=== PATIENT | male | born 2000 | race African-American/Black ===

== ENCOUNTER 2024-06-18 14:57 | Emergency (ER) | payer MEDICAID, OTHER ==
[~2024-06-18] VITALS: Ht 175.3 cm; Wt 70.0 kg
[~2024-06-18 14:57] MED LIST: ADDERAL; CLARITIN; FLOUXETINE; RISPERDAL
[2024-06-18 15:03] VITALS: O2SAT 99
[2024-06-18 16:32] LABS: BASOPHILS % 0.3 % (0.0-2.0); EOSINOPHILS % 0.6 % (0.0-5.0); HEMATOCRIT. 46.1 % (42.0-52.0); HEMOGLOBIN. 15.3 g/dL (14.0-18.0); LYMPHOCYTES % 12.3 % (20.0-50.0); MEAN CORPUSCULAR HEMOGLOBIN 27.3 pg (28.0-32.0); MEAN CORPUSCULAR HGB CONC 33.1 g/dL (31.0-37.0); MEAN CORPUSCULAR VOLUME 82.4 fL (80.0-94.0); MEAN PLATELET VOLUME 7.7 fl (7.4-10.4); MONOCYTES % 5.8 % (2.0-8.0); PLATELET 258 x1000/uL (130-400); RED BLOOD CELL COUNT 5.59 mill/uL (4.7-6.1); RED CELL DISTRIBUTION WIDTH 13.1 % (11.6-14.6); WHITE BLOOD COUNT 13.3 x1000/uL (4.5-11.0)
[2024-06-18 16:33] LABS: CHLORIDE 107 mEq/L (98-107); POTASSIUM 3.3 mEq/L (3.5-5.1); SODIUM 144 mEq/L (136-145)
[2024-06-18 16:34] LABS: CALCIUM 10.3 mg/dL (8.7-10.4); CARBON DIOXIDE 30 mEq/L (21-32)
[2024-06-18 16:39] LABS: CREATININE 0.7 mg/dL (0.6-1.3); GLUCOSE 76 mg/dL (70-105); UREA NITROGEN BLOOD 11 mg/dL (9-23)
[2024-06-18 16:41] LABS: ACETAMINOPHEN < 2 ug/mL (10-30)
[2024-06-18 16:47] LABS: ETHANOL BLOOD < 10 mg/dL (<10)
[2024-06-18] MEDS: LORAZEPAM 2MG/ML INJ IM ONE (16:54)
[2024-06-18] MEDS: DIPHENHYDRAMINE 50MG/ML VIAL IM ONE (16:54)
[2024-06-18] MEDS: HALOPERIDOL LACTATE 5MG/ML VIAL IM ONE (16:54)
[2024-06-19 14:46] VITALS: BP 118/72; PULSE 84; RESP 18; TEMP 36.66960; O2SAT 100
== END 2024-06-19 14:58 | disposition home or self-care (01) ==
LOC: ER 14:57
DX: R45.851 Suicidal ideations (principal); E11.9 Type 2 diabetes mellitus without complications
CPT/HCPCS: 80048; 80307; 80329; 80320; 82962; 85025; 36415; 96372; 99291; J1200; J1630; Z7610 ×2; G0480

== ENCOUNTER 2024-06-29 12:31 | Emergency (ER) | payer MEDICAID ==
[~2024-06-29] VITALS: Ht 172.7 cm; Wt 79.0 kg
[2024-06-29 12:37] VITALS: O2SAT 99
[2024-06-29 13:16] LABS: CLARITY URINE CLEAR (CLEAR); COLOR URINE YELLOW (YELLOW); GLUCOSE URINE 3+ (NEGATIVE); KETONES URINE 2+ (NEGATIVE); LEUKOCYTE ESTERASE URINE NEGATIVE (NEGATIVE); NITRITE URINE NEGATIVE (NEGATIVE); OCCULT BLOOD URINE NEGATIVE (NEGATIVE); PH URINE 5.5 (4.5-8.0); PROTEIN URINE 1+ (NEGATIVE); SPECIFIC GRAVITY URINE 1.035 (1.005-1.030); UROBILINOGEN URINE 0.2 E.U./dL (0.2-1.0)
[2024-06-29 13:35] LABS: SQUAMOUS EPITHELIAL CELL URINE RARE /lpf (RARE/1+)
[2024-06-29 13:37] LABS: BACTERIA URINE NONE SEEN; RBC URINE NONE SEEN /hpf (0-2); WBC URINE NONE SEEN /hpf (0-2)
[2024-06-29 13:46] LABS: BASOPHILS % 0.3 % (0.0-2.0); EOSINOPHILS % 0.3 % (0.0-5.0); HEMOGLOBIN. 15.1 g/dL (14.0-18.0); LYMPHOCYTES % 11.6 % (20.0-50.0); MEAN CORPUSCULAR HEMOGLOBIN 27.1 pg (28.0-32.0); MEAN CORPUSCULAR HGB CONC 32.9 g/dL (31.0-37.0); MEAN CORPUSCULAR VOLUME 82.4 fL (80.0-94.0); MEAN PLATELET VOLUME 7.4 fl (7.4-10.4); MONOCYTES % 5.1 % (2.0-8.0); NEUTROPHILS % 82.7 % (40.0-76.0); PLATELET 267 x1000/uL (130-400); RED BLOOD CELL COUNT 5.59 mill/uL (4.7-6.1); WHITE BLOOD COUNT 12.9 x1000/uL (4.5-11.0)
[2024-06-29 13:59] LABS: CHLORIDE 97 mEq/L (98-107); POTASSIUM 4.5 mEq/L (3.5-5.1); SODIUM 132 mEq/L (136-145)
[2024-06-29 14:00] LABS: CARBON DIOXIDE 25 mEq/L (21-32)
[2024-06-29 14:01] LABS: CALCIUM 9.6 mg/dL (8.7-10.4)
[2024-06-29 14:06] LABS: UREA NITROGEN BLOOD 12 mg/dL (9-23)
[2024-06-29 14:08] LABS: ACETAMINOPHEN < 2 ug/mL (10-30)
[2024-06-29 14:09] LABS: ETHANOL BLOOD < 10 mg/dL (<10); GLUCOSE 391 mg/dL (70-105)
[2024-06-29 14:14] LABS: *AMPHETAMINES SCREEN URINE NEGATIVE (NEGATIVE); *BARBITURATES SCREEN URINE NEGATIVE (NEGATIVE); *BENZODIAZEPINES SCREEN URINE NEGATIVE (NEGATIVE); *COCAINE SCREEN URINE PRESUMPTIVE POSITIVE (NEGATIVE)
[2024-06-29 14:15] LABS: CANNABINOID URINE SCREEN PRESUMPTIVE POSITIVE (NEGATIVE); ECSTASY MDMA SCREEN URINE NEGATIVE (NEGATIVE); METHADONE URINE SCREEN NEGATIVE (NEGATIVE); OPIATES URINE SCREEN NEGATIVE (NEGATIVE); PHENCYCLIDINE URINE SCREEN NEGATIVE (NEGATIVE)
[2024-06-29] MEDS ORDERED: INSULIN REGULAR (HUMULIN R) 1000UNITS/10ML VIAL SUBCUT ONE (20:00)
[2024-06-29] MEDS ORDERED: DEXTROSE 50% WATER 50ML SYRINGE IV PRN (20:30)
[2024-06-29] MEDS: BLOOD SUGAR DIAGNOSTIC STRIP TEST SCH (21:00)
[2024-06-30] MEDS: INSULIN LISPRO 100 UNITS/ML SUBCUT PRN (09:50)
[2024-06-30 10:56] VITALS: BP 112/58; PULSE 92; RESP 18; TEMP 36.89184; O2SAT 99
== END 2024-06-30 11:50 | disposition home or self-care (01) ==
LOC: ER 12:31
DX: R45.851 Suicidal ideations (principal); E10.9 Type 1 diabetes mellitus without complications; F17.200 Nicotine dependence, unspecified, uncomplicated; F15.90 Other stimulant use, unspecified, uncomplicated; F12.90 Cannabis use, unspecified, uncomplicated; F41.9 Anxiety disorder, unspecified; Z79.4 Long term (current) use of insulin; Z91.51 Personal history of suicidal behavior
CPT/HCPCS: 80305; 80048; 81003; 80307; 80329; 80320; 82962; 85025; 36415; 73630; 99285; 96372; J1815; G0480

== ENCOUNTER 2025-03-14 11:58 | Inpatient (IN) | payer MEDICAID ==
[~2025-03-14] VITALS: Ht 177.8 cm; Wt 75.7 kg
[2025-03-14 12:01] VITALS: O2SAT 100
[2025-03-14] MEDS ORDERED: MIDAZOLAM HCL 2 MG/2 ML VIAL IM ONE (12:30)
[2025-03-14] MEDS: CEFTRIAXONE 1GM/50ML 50 ML IV ONE (12:45)
[2025-03-14] MEDS: SODIUM CHLORIDE 0.9% (SEPSIS BOLUS) IV ONE (12:45)
[2025-03-14] MEDS ORDERED: MIDAZOLAM HCL 5 MG/ML VIAL IM NR (12:45)
[2025-03-14 12:53] LABS: BASOPHILS % 0.8 % (0.0-2.0); EOSINOPHILS % 0.4 % (0.0-5.0); HEMATOCRIT. 45.0 % (42.0-52.0); HEMOGLOBIN. 15.1 g/dL (14.0-18.0); LYMPHOCYTES % 22.8 % (20.0-50.0); MEAN PLATELET VOLUME 8.2 fl (7.4-10.4); MONOCYTES % 7.2 % (2.0-8.0); NEUTROPHILS % 68.8 % (40.0-76.0); PLATELET 251 x1000/uL (130-400); RED BLOOD CELL COUNT 5.59 mill/uL (4.7-6.1); RED CELL DISTRIBUTION WIDTH 13.5 % (11.6-14.6)
[2025-03-14 12:57] LABS: BG BASE EXCESS 2.1 mmol/L (-2.0-3.0); BG CARBOXYHEMOGLOBIN 1.1 % (0.5-1.5); BG DEOXYHEMOGLOBIN 1.1 % (0.0-5.0); BG FRACTION INSPIRED OXYGEN 21; BG HCO3 ACT 22.3 mmol/L (21.0-28.0); BG METHEMOGLOBIN 0.1 % (0.5-1.5); BG OXYGEN SATURATION 98.9 % (94.0-98.0); BG OXYHEMOGLOBIN 97.7 % (94.0-98.0); BG PCO2 24.9 mmHg (35.0-48.0); BG PH 7.570 (7.350-7.450); BG PO2 121.2 mmHg (83.0-108.0); BG SAMPLE SITE RIGHT RADIAL; BG TOTAL HEMOGLOBIN 15.9 g/dL (13.5-17.5); BG VENT MODE ROOM AIR
[2025-03-14 13:08] LABS: INR 1.0
[2025-03-14 13:24] LABS: CREATININE 1.0 mg/dL (0.6-1.3)
[2025-03-14 13:25] LABS: ETHANOL BLOOD < 10 mg/dL (<10); TROPONIN I HIGH SENSITIVITY < 4 ng/L (3.0-53); UREA NITROGEN BLOOD 8 mg/dL (9-23)
[2025-03-14 13:26] LABS: ASPARTATE AMINOTRANSFERASE 19 IU/L (<34)
[2025-03-14 13:27] LABS: BILIRUBIN DIRECT 0.2 mg/dL (<=3.0); BILIRUBIN TOTAL 0.5 mg/dL (0.1-1.0); PROTEIN TOTAL 7.3 g/dL (6.0-8.3)
[2025-03-14] MEDS: INSULIN REGULAR (HUMULIN R) 1000UNITS/10ML VIAL SUBCUT SCH (14:24)
[2025-03-14] MEDS ORDERED: DEXTROSE 50% WATER 50ML SYRINGE IV PRN (16:30)
[2025-03-14] MEDS ORDERED: ACETAMINOPHEN 325MG TABLET PO PRN (16:30)
[2025-03-14] MEDS ORDERED: ONDANSETRON HCL 4MG/2ML INJ IV PRN (16:30)
[2025-03-14] MEDS ORDERED: MORPHINE SULFATE 2 MG/ML INJ (NOT FOR IM USE) IV PRN (16:30)
[2025-03-14] MEDS ORDERED: CLONIDINE 0.1MG TABLET PO PRN (16:30)
[2025-03-14] MEDS ORDERED: MAGNESIUM/ALUMINUM HYDROXIDE/SIMETHICONE 30ML UDC PO PRN (16:30)
[2025-03-14] MEDS: AZITHROMYCIN 500MG/250ML 250 ML IV SCH (17:08)
[2025-03-14] MEDS: SODIUM CHLORIDE 0.9% 1,000 ML IV SCH (17:08)
[2025-03-14] MEDS: BLOOD SUGAR DIAGNOSTIC STRIP TEST SCH (17:25)
[2025-03-14] MEDS: INSULIN LISPRO 100 UNITS/ML SUBCUT SCH (18:23)
[2025-03-14] MEDS: ENOXAPARIN 40MG/0.4ML SYR SUBCUT SCH (18:23)
[2025-03-14 21:42] LABS: CLARITY URINE CLEAR (CLEAR); COLOR URINE YELLOW (YELLOW); GLUCOSE URINE 3+ (NEGATIVE); KETONES URINE 1+ (NEGATIVE); LEUKOCYTE ESTERASE URINE NEGATIVE (NEGATIVE); NITRITE URINE NEGATIVE (NEGATIVE); OCCULT BLOOD URINE NEGATIVE (NEGATIVE); PH URINE 5.5 (4.5-8.0); PROTEIN URINE NEGATIVE (NEGATIVE); SPECIFIC GRAVITY URINE 1.033 (1.005-1.030); UROBILINOGEN URINE 0.2 E.U./dL (0.2-1.0)
[2025-03-14 21:57] LABS: BACTERIA URINE TRACE; RBC URINE NONE SEEN /hpf (0-2); SQUAMOUS EPITHELIAL CELL URINE RARE /lpf (RARE/1+)
[2025-03-14 21:58] LABS: *AMPHETAMINES SCREEN URINE NEGATIVE (NEGATIVE); WBC URINE 0-2 /hpf (0-2)
[2025-03-14 21:59] LABS: *BARBITURATES SCREEN URINE NEGATIVE (NEGATIVE); *BENZODIAZEPINES SCREEN URINE NEGATIVE (NEGATIVE); *COCAINE SCREEN URINE NEGATIVE (NEGATIVE); CANNABINOID URINE SCREEN PRESUMPTIVE POSITIVE (NEGATIVE); ECSTASY MDMA SCREEN URINE NEGATIVE (NEGATIVE); METHADONE URINE SCREEN NEGATIVE (NEGATIVE); OPIATES URINE SCREEN NEGATIVE (NEGATIVE); PHENCYCLIDINE URINE SCREEN NEGATIVE (NEGATIVE)
[2025-03-14 23:00] VITALS: BP 109/2; PULSE 74; RESP 18; TEMP 36.3624
[2025-03-15] VITALS: BP 101/65; PULSE 68; RESP 20; TEMP 37; O2SAT 96
[2025-03-15] MEDS: ZOLPIDEM TARTRATE 5MG TABLET PO PRN (00:08)
[2025-03-15] MEDS: HYDROCODONE/ACETAMINOPHEN 5/325MG TABLET PO PRN (00:09)
[2025-03-15 04:00] VITALS: BP 99/73; PULSE 69; RESP 20; TEMP 36.4; O2SAT 97
[2025-03-15 07:21] LABS: BASOPHILS % 0.4 % (0.0-2.0); EOSINOPHILS % 1.2 % (0.0-5.0); HEMATOCRIT. 39.6 % (42.0-52.0); HEMOGLOBIN. 13.0 g/dL (14.0-18.0); LYMPHOCYTES % 37.9 % (20.0-50.0); MEAN PLATELET VOLUME 8.2 fl (7.4-10.4); MONOCYTES % 8.3 % (2.0-8.0); NEUTROPHILS % 52.2 % (40.0-76.0); PLATELET 198 x1000/uL (130-400); RED BLOOD CELL COUNT 4.94 mill/uL (4.7-6.1); RED CELL DISTRIBUTION WIDTH 13.3 % (11.6-14.6)
[2025-03-15 07:35] LABS: CREATININE 0.7 mg/dL (0.6-1.3); UREA NITROGEN BLOOD 6 mg/dL (9-23)
[2025-03-15 08:00] VITALS: BP 103/71; PULSE 80; RESP 20; TEMP 36.2; O2SAT 98
[2025-03-15] MEDS: PANTOPRAZOLE SODIUM 40 MG/VIAL IV SCH (08:44)
[2025-03-15 12:00] VITALS: BP 105/76; PULSE 81; RESP 18; TEMP 36.4; O2SAT 98
[2025-03-15] MEDS ORDERED: CEFTRIAXONE 1GM/50ML 50 ML IV SCH (13:00)
[2025-03-15 16:00] VITALS: BP 97/61; PULSE 88; RESP 20; TEMP 36.2; O2SAT 99
[2025-03-15] MEDS: CEFTRIAXONE 1GM/50ML 50 ML IV SCH (16:28)
[2025-03-15] MEDS: AZITHROMYCIN 500MG/250ML 250 ML IV SCH (19:33)
[2025-03-15 20:00] VITALS: BP 106/66; PULSE 75; RESP 18; TEMP 36.6; O2SAT 95
[2025-03-16] VITALS: BP 111/72; PULSE 72; RESP 18; TEMP 36.2; O2SAT 99
[2025-03-16 03:57] VITALS: BP 114/67; PULSE 63; RESP 18; TEMP 36.4; O2SAT 99
[2025-03-16 07:46] LABS: BASOPHILS % 0.4 % (0.0-2.0); EOSINOPHILS % 1.5 % (0.0-5.0); HEMATOCRIT. 37.5 % (42.0-52.0); HEMOGLOBIN. 12.0 g/dL (14.0-18.0); LYMPHOCYTES % 40.0 % (20.0-50.0); MEAN PLATELET VOLUME 8.6 fl (7.4-10.4); MONOCYTES % 9.3 % (2.0-8.0); NEUTROPHILS % 48.8 % (40.0-76.0); PLATELET 178 x1000/uL (130-400); RED BLOOD CELL COUNT 4.61 mill/uL (4.7-6.1); RED CELL DISTRIBUTION WIDTH 13.4 % (11.6-14.6)
[2025-03-16 07:51] LABS: CREATININE 0.6 mg/dL (0.6-1.3); UREA NITROGEN BLOOD < 5 mg/dL (9-23)
[2025-03-16 08:00] VITALS: BP 112/72; PULSE 74; RESP 20; TEMP 36.3; O2SAT 98
[2025-03-16] MEDS ORDERED: NALOXONE HCL 0.4MG/ML VIAL IV PRN (08:15)
[2025-03-16] MEDS: POTASSIUM CHLORIDE 20MEQ/PACKET PO NR (08:19)
[2025-03-16 12:00] VITALS: BP 112/69; PULSE 81; RESP 16; TEMP 36.3; O2SAT 100
[2025-03-16] MEDS ORDERED: AMOX1TAB16 MT (12:21)
[2025-03-16] MEDS: CEFTRIAXONE 1GM/50ML 50 ML IV SCH (12:54)
[2025-03-16 16:00] VITALS: BP 117/76; PULSE 72; RESP 20; TEMP 36.4; O2SAT 99
[2025-03-16 16:16] LABS: BASOPHILS % 0.7 % (0.0-2.0); EOSINOPHILS % 1.1 % (0.0-5.0); HEMATOCRIT. 41.3 % (42.0-52.0); HEMOGLOBIN. 13.5 g/dL (14.0-18.0); LYMPHOCYTES % 30.0 % (20.0-50.0); MEAN PLATELET VOLUME 8.7 fl (7.4-10.4); MONOCYTES % 9.5 % (2.0-8.0); NEUTROPHILS % 58.7 % (40.0-76.0); PLATELET 202 x1000/uL (130-400); RED BLOOD CELL COUNT 5.08 mill/uL (4.7-6.1); RED CELL DISTRIBUTION WIDTH 13.4 % (11.6-14.6)
[2025-03-16 20:00] VITALS: BP 109/71; PULSE 71; RESP 18; TEMP 36.2; O2SAT 100
[2025-03-16] MEDS: SENNOSIDES 8.6MG TABLET PO SCH (21:44)
[2025-03-16] MEDS: FAMOTIDINE 20MG/2ML VIAL IV SCH (21:48)
[2025-03-16] MEDS: DOCUSATE SODIUM 100MG CAPSULE PO SCH (21:48)
[2025-03-17 04:00] VITALS: BP 123/66; PULSE 72; RESP 19; TEMP 36.4; O2SAT 97
[2025-03-17 06:46] LABS: BASOPHILS % 0.5 % (0.0-2.0); EOSINOPHILS % 1.2 % (0.0-5.0); HEMATOCRIT. 38.9 % (42.0-52.0); HEMOGLOBIN. 12.7 g/dL (14.0-18.0); LYMPHOCYTES % 36.5 % (20.0-50.0); MEAN PLATELET VOLUME 8.9 fl (7.4-10.4); MONOCYTES % 8.6 % (2.0-8.0); NEUTROPHILS % 53.2 % (40.0-76.0); PLATELET 173 x1000/uL (130-400); RED BLOOD CELL COUNT 4.79 mill/uL (4.7-6.1); RED CELL DISTRIBUTION WIDTH 13.4 % (11.6-14.6)
[2025-03-17 06:56] LABS: CREATININE 0.9 mg/dL (0.6-1.3); UREA NITROGEN BLOOD 7 mg/dL (9-23)
[2025-03-17 08:00] VITALS: BP 120/84; PULSE 80; RESP 18; TEMP 36.7; O2SAT 99
[2025-03-17] MEDS: AZITHROMYCIN 500 MG TABLET PO SCH (11:51)
[2025-03-17 12:00] VITALS: BP 122/74; PULSE 85; RESP 16; TEMP 36.4; O2SAT 98
[2025-03-17 16:00] VITALS: BP 115/70; PULSE 79; RESP 18; TEMP 36.3; O2SAT 97
[2025-03-17 20:00] VITALS: BP 109/70; PULSE 68; RESP 19; TEMP 36.2; O2SAT 98
[2025-03-18] VITALS: BP 103/65; PULSE 60; RESP 19; TEMP 35.9; O2SAT 98
[2025-03-18 04:00] VITALS: BP 125/84; PULSE 80; RESP 20; TEMP 36
[2025-03-18 08:00] VITALS: BP 119/74; PULSE 82; RESP 18; TEMP 36.7; O2SAT 97
[2025-03-18 12:00] VITALS: BP 121/75; PULSE 80; RESP 16; TEMP 36.4; O2SAT 98
[2025-03-18] MEDS ORDERED: IPRATROPIUM/ALBUTEROL 0.5-3(2.5)MG/3ML NEB HHN PRN (13:45)
[2025-03-18] MEDS ORDERED: SODIUM CHLORIDE 10% FOR INH 15ML NEB INH SCH (14:00)
[2025-03-18 16:00] VITALS: BP 119/70; PULSE 85; RESP 18; TEMP 36.8; O2SAT 97
[2025-03-18 20:00] VITALS: BP 100/53; PULSE 73; RESP 18; TEMP 36.6; O2SAT 100
[2025-03-18 23:01] LABS: HEPATITIS A AB IGM NEGATIVE (Negative)
[2025-03-18 23:02] LABS: HEPATITIS B CORE AB IGM NEGATIVE (Negative); HEPATITIS C AB NON REACTIVE (Neg) (Negative)
[2025-03-19] VITALS (7 sets, daily range): BP systolic 100–124; BP diastolic 50–70; PULSE 60–73; RESP 18–20; TEMP 36.2–36.7; O2SAT 96–100
[2025-03-20] VITALS: BP 114/56; PULSE 60; RESP 18; TEMP 36.6; O2SAT 97
[2025-03-20 04:00] VITALS: BP 114/62; PULSE 65; RESP 18; TEMP 36.6; O2SAT 99
[2025-03-20 08:00] VITALS: BP 120/78; PULSE 81; RESP 18; TEMP 36.3; O2SAT 99
[2025-03-20 12:00] VITALS: BP 122/71; PULSE 81; RESP 18; TEMP 36.6; O2SAT 100
[2025-03-20 16:00] VITALS: BP 103/56; PULSE 69; RESP 20; TEMP 36.7; O2SAT 99
[2025-03-20] MEDS: GLIPIZIDE 5MG TABLET PO SCH (16:18)
[2025-03-20 20:00] VITALS: BP 115/56; PULSE 69; RESP 19; TEMP 36.3; O2SAT 98
[2025-03-20] MEDS: INSULIN GLARGINE 100 UNITS/ML SUBCUT SCH (21:52)
[2025-03-21] VITALS: BP 108/50; PULSE 68; RESP 19; TEMP 36.3; O2SAT 98
[2025-03-21 04:00] VITALS: BP 108/65; PULSE 58; RESP 18; RESP 19; TEMP 36.4; O2SAT 98
[2025-03-21 08:00] VITALS: BP 112/61; PULSE 77; RESP 18; TEMP 36.4; O2SAT 100
[2025-03-21 12:00] VITALS: BP 110/70; PULSE 79; RESP 16; TEMP 36.5; O2SAT 99
[2025-03-21 16:00] VITALS: BP 119/79; PULSE 80; RESP 20; TEMP 36.7; O2SAT 100
[2025-03-21 20:00] VITALS: BP 113/66; PULSE 72; RESP 16; TEMP 36.4; O2SAT 98
[2025-03-22] VITALS: BP 115/53; PULSE 58; RESP 19; TEMP 36.2; O2SAT 97
[2025-03-22 04:00] VITALS: BP 103/59; PULSE 59; RESP 19; TEMP 36.6; O2SAT 97
[2025-03-22 08:00] VITALS: BP 107/59; PULSE 61; RESP 20; TEMP 36.7; O2SAT 98
[2025-03-22 12:00] VITALS: BP 110/60; PULSE 71; RESP 20; TEMP 36.7; O2SAT 99
[2025-03-22 16:00] VITALS: BP 105/59; PULSE 64; RESP 20; TEMP 36.9; O2SAT 99
[2025-03-22 17:11] LABS: *ASPERGILLUS FUMIGATUS IGG 5.5 mg/L (0.0-74.2)
[2025-03-22 20:00] VITALS: BP 118/64; PULSE 76; RESP 20; TEMP 37; O2SAT 98
[2025-03-23] VITALS (7 sets, daily range): BP systolic 96–113; BP diastolic 54–74; PULSE 61–90; RESP 17–20; TEMP 35.7–36.7; O2SAT 97–100
[2025-03-24] VITALS (7 sets, daily range): BP systolic 96–115; BP diastolic 49–69; PULSE 67–83; RESP 16–20; TEMP 36.2–37.2; O2SAT 98–100
[2025-03-24 04:09] LABS: QFT MITOGEN VALUE >10.00 IU/mL (.); QFT TB GOLD PLUS Negative (Negative); QFT TB1 AG VALUE 0.12 IU/mL (.); QFT TB2 AG VALUE 0.10 IU/mL (.)
[2025-03-25] VITALS: BP 106/49; PULSE 69; RESP 19; TEMP 36.4; O2SAT 98
[2025-03-25 04:00] VITALS: BP 116/59; PULSE 73; RESP 19; TEMP 36.5; O2SAT 98
[2025-03-25 08:00] VITALS: BP 104/71; PULSE 85; RESP 18; TEMP 36.7; O2SAT 97
[2025-03-25 12:00] VITALS: BP 115/68; PULSE 80; RESP 16; TEMP 36.7; O2SAT 99
[2025-03-25 16:00] VITALS: BP 105/64; PULSE 93; RESP 18; TEMP 36.5; O2SAT 100
[2025-03-25 20:00] VITALS: BP 119/67; PULSE 88; RESP 20; TEMP 36.3; O2SAT 100
[2025-03-26] VITALS: BP 110/60; PULSE 72; RESP 20; TEMP 36.3; O2SAT 100
[2025-03-26 04:00] VITALS: BP 101/53; PULSE 76; RESP 20; TEMP 35.7; O2SAT 100
[2025-03-26 07:33] LABS: BASOPHILS % 0.9 % (0.0-2.0); EOSINOPHILS % 1.6 % (0.0-5.0); HEMATOCRIT. 45.7 % (42.0-52.0); HEMOGLOBIN. 14.9 g/dL (14.0-18.0); LYMPHOCYTES % 34.1 % (20.0-50.0); MEAN PLATELET VOLUME 8.2 fl (7.4-10.4); MONOCYTES % 7.8 % (2.0-8.0); NEUTROPHILS % 55.6 % (40.0-76.0); PLATELET 215 x1000/uL (130-400); RED BLOOD CELL COUNT 5.64 mill/uL (4.7-6.1); RED CELL DISTRIBUTION WIDTH 13.1 % (11.6-14.6)
[2025-03-26 08:00] VITALS: BP 106/60; PULSE 87; RESP 18; TEMP 36.5; O2SAT 97
[2025-03-26 08:02] LABS: CREATININE 0.8 mg/dL (0.6-1.3); UREA NITROGEN BLOOD 9 mg/dL (9-23)
[2025-03-26 08:04] LABS: ASPARTATE AMINOTRANSFERASE 69 IU/L (<34); BILIRUBIN TOTAL 0.4 mg/dL (0.1-1.0); PROTEIN TOTAL 6.5 g/dL (6.0-8.3)
[2025-03-26 12:00] VITALS: BP 111/57; PULSE 78; RESP 16; TEMP 36.5; O2SAT 99
[2025-03-26 16:00] VITALS: BP 112/64; PULSE 71; RESP 18; TEMP 36.5; O2SAT 100
[2025-03-26 20:00] VITALS: BP 140/65; PULSE 85; RESP 18; TEMP 36.4; O2SAT 98
[2025-03-27] VITALS: BP 122/61; PULSE 81; RESP 18; TEMP 36.3; O2SAT 98
[2025-03-27 04:00] VITALS: BP 100/60; PULSE 69; RESP 18; TEMP 36.3; O2SAT 97
[2025-03-27 08:00] VITALS: BP 106/59; PULSE 72; RESP 18; TEMP 36.4; O2SAT 100
[2025-03-27 12:00] VITALS: BP 113/62; PULSE 81; RESP 18; TEMP 36.2; O2SAT 98
[2025-03-27 16:00] VITALS: BP 115/64; PULSE 65; RESP 18; TEMP 36.4; O2SAT 97
[2025-03-27 20:00] VITALS: BP_SYST 103; BP_SYST 104; BP_DIAS 56; BP_DIAS 57; PULSE 75; PULSE 81; RESP 18; RESP 20; TEMP 36.1; TEMP 36.3; O2SAT 100; O2SAT 97
[2025-03-27] MEDS: INSULIN GLARGINE 100 UNITS/ML SUBCUT SCH (22:52)
[2025-03-28] VITALS: BP 103/57; PULSE 75; RESP 18; TEMP 36.1; O2SAT 97
[2025-03-28 04:00] VITALS: BP 102/60; PULSE 82; RESP 16; TEMP 36.2; O2SAT 99
[2025-03-28 08:00] VITALS: BP 95/45; PULSE 67; RESP 19; TEMP 36.8; O2SAT 100
[2025-03-28 12:00] VITALS: BP 128/72; PULSE 91; RESP 18; TEMP 36.6; O2SAT 100
[2025-03-28 16:00] VITALS: BP 111/69; PULSE 82; RESP 18; TEMP 36.5; O2SAT 100
[2025-03-28 20:00] VITALS: BP 104/57; PULSE 84; RESP 16; TEMP 36.3; O2SAT 98
[2025-03-28] MEDS: FAMOTIDINE 20MG TABLET PO SCH (21:42)
[2025-03-29] VITALS: BP 106/62; PULSE 67; RESP 19; TEMP 36.1; O2SAT 97
[2025-03-29 04:00] VITALS: BP 104/59; PULSE 80; RESP 19; TEMP 36.3; O2SAT 96
[2025-03-29 08:00] VITALS: BP 104/58; PULSE 68; RESP 19; TEMP 36.6
[2025-03-29 12:00] VITALS: BP 101/59; PULSE 83; RESP 18; TEMP 36.7; O2SAT 100
[2025-03-29 16:00] VITALS: BP 114/57; PULSE 86; RESP 18; TEMP 36.4; O2SAT 100
[2025-03-29 20:00] VITALS: BP 111/62; PULSE 88; RESP 17; TEMP 36.4; O2SAT 98
[2025-03-30] VITALS: BP 105/59; PULSE 84; RESP 20; TEMP 36.8; O2SAT 99
[2025-03-30 04:00] VITALS: BP 99/53; PULSE 70; RESP 17; TEMP 37; O2SAT 100
[2025-03-30 08:00] VITALS: BP 109/65; PULSE 78; RESP 18; TEMP 36.1; O2SAT 100
[2025-03-30 12:00] VITALS: BP 112/62; PULSE 69; RESP 16; TEMP 36.4; O2SAT 100
[2025-03-30 16:00] VITALS: BP 102/56; PULSE 80; RESP 18; TEMP 37.1; O2SAT 100
[2025-03-30 20:00] VITALS: BP 101/51; PULSE 83; RESP 18; TEMP 36.3; O2SAT 100
[2025-03-31] VITALS: BP 95/53; PULSE 67; RESP 18; TEMP 36.4; O2SAT 100
[2025-03-31 04:00] VITALS: BP 106/56; PULSE 65; RESP 18; TEMP 36.4; O2SAT 97
[2025-03-31 08:00] VITALS: BP 94/53; PULSE 67; RESP 20; TEMP 36.2; O2SAT 100
[2025-03-31 12:00] VITALS: BP 105/62; PULSE 80; RESP 18; TEMP 36.1; O2SAT 99
[2025-03-31 16:00] VITALS: BP 110/72; PULSE 76; RESP 19; TEMP 36.3; O2SAT 100
[2025-03-31 20:00] VITALS: BP 103/80; PULSE 80; RESP 18; TEMP 36.7; O2SAT 97
[2025-04-01] VITALS: BP 106/75; PULSE 82; RESP 18; TEMP 36.6; O2SAT 100
[2025-04-01 04:00] VITALS: BP 111/70; PULSE 78; RESP 18; TEMP 36.4; O2SAT 98
[2025-04-01 08:00] VITALS: BP 110/68; PULSE 76; RESP 19; TEMP 36.6; O2SAT 98
[2025-04-01] MEDS: ARIPIPRAZOLE 5MG TABLET PO SCH (08:36)
[2025-04-01 12:00] VITALS: BP 108/70; PULSE 78; RESP 19; TEMP 36.6; O2SAT 98
[2025-04-01 16:00] VITALS: BP 111/66; PULSE 75; RESP 19; TEMP 36.7; O2SAT 98
[2025-04-01 20:00] VITALS: BP 103/56; PULSE 74; RESP 17; TEMP 36.3; O2SAT 100
[2025-04-02] VITALS: BP 105/61; PULSE 70; RESP 16; TEMP 36.2; O2SAT 100
[2025-04-02 04:00] VITALS: BP 110/59; PULSE 74; RESP 16; TEMP 36.2; O2SAT 100
[2025-04-02 08:00] VITALS: BP 113/58; PULSE 74; RESP 18; TEMP 36.2; O2SAT 99
[2025-04-02 12:00] VITALS: BP 112/56; PULSE 79; RESP 18; TEMP 36.6; O2SAT 100
[2025-04-02 16:00] VITALS: BP 125/70; PULSE 91; RESP 18; TEMP 36.1; O2SAT 98
[2025-04-02 20:00] VITALS: BP 110/66; PULSE 84; RESP 20; TEMP 36.4; O2SAT 98
[2025-04-03] VITALS: BP 105/54; PULSE 70; RESP 20; TEMP 36.6; O2SAT 99
[2025-04-03 04:00] VITALS: BP 109/60; PULSE 68; RESP 20; TEMP 36.4; O2SAT 98
[2025-04-03 08:00] VITALS: BP 112/63; PULSE 71; RESP 20; TEMP 36.2; O2SAT 97
[2025-04-03 12:00] VITALS: BP 101/53; PULSE 97; RESP 20; TEMP 35.9; O2SAT 98
[2025-04-03 16:00] VITALS: BP 102/62; PULSE 95; RESP 18; TEMP 35.9; O2SAT 100
[2025-04-03 20:00] VITALS: BP 111/55; PULSE 63; RESP 20; TEMP 36.3; O2SAT 96
[2025-04-04] VITALS: BP 108/58; PULSE 68; RESP 20; TEMP 36.2; O2SAT 97
[2025-04-04 04:00] VITALS: BP 102/61; PULSE 91; RESP 20; TEMP 36.3; O2SAT 98
[2025-04-04 08:00] VITALS: BP 100/60; PULSE 83; RESP 18; TEMP 36.1; O2SAT 97
[2025-04-04 12:00] VITALS: BP 107/61; PULSE 79; RESP 19; TEMP 36.2; O2SAT 97
[2025-04-04 16:00] VITALS: BP 105/61; PULSE 89; RESP 18; TEMP 36.3; O2SAT 98
[2025-04-04 20:00] VITALS: BP 145/97; PULSE 79; RESP 20; TEMP 36.3; O2SAT 97
[2025-04-05] VITALS: BP 140/94; PULSE 72; RESP 20; TEMP 36.2; O2SAT 98
[2025-04-05 04:00] VITALS: BP 103/60; PULSE 89; RESP 20; TEMP 36.3; O2SAT 100
[2025-04-05 08:00] VITALS: BP 108/70; PULSE 87; RESP 19; TEMP 36.1; O2SAT 96
[2025-04-05 12:00] VITALS: BP 110/72; PULSE 85; RESP 19; TEMP 36.1; O2SAT 95
[2025-04-05 16:00] VITALS: BP 115/67; PULSE 89; RESP 19; TEMP 36.1; O2SAT 98
[2025-04-05 20:00] VITALS: BP 105/60; PULSE 86; RESP 20; TEMP 36.2; O2SAT 100
[2025-04-06] VITALS: BP 102/56; PULSE 89; RESP 20; TEMP 36.2; O2SAT 99
[2025-04-06 04:00] VITALS: BP 96/53; PULSE 92; RESP 20; TEMP 36.3; O2SAT 100
[2025-04-06 08:00] VITALS: BP 103/59; PULSE 93; RESP 16; TEMP 36.6; O2SAT 100
[2025-04-06 12:00] VITALS: BP 101/55; PULSE 95; RESP 18; TEMP 36.7; O2SAT 100
[2025-04-06 16:00] VITALS: BP 100/52; PULSE 89; RESP 18; TEMP 36.7; O2SAT 99
[2025-04-06 20:00] VITALS: BP 106/57; PULSE 94; RESP 19; TEMP 36.3; O2SAT 100
[2025-04-07] VITALS: BP 95/56; PULSE 83; RESP 17; TEMP 36.4; O2SAT 97
[2025-04-07 08:00] VITALS: BP 103/60; PULSE 90; RESP 18; TEMP 36.5; O2SAT 100
[2025-04-07 12:00] VITALS: BP 104/61; PULSE 93; RESP 16; TEMP 36.8; O2SAT 99
[2025-04-07 16:00] VITALS: BP 100/54; PULSE 95; RESP 16; TEMP 36.1; O2SAT 99
[2025-04-07 20:00] VITALS: BP 101/60; PULSE 70; RESP 18; TEMP 36.3; O2SAT 100
[2025-04-08] VITALS: BP 97/56; PULSE 89; RESP 19; TEMP 36.4; O2SAT 100
[2025-04-08 08:00] VITALS: BP 107/62; PULSE 95; RESP 20; TEMP 36.2; O2SAT 98
[2025-04-08 12:00] VITALS: BP 112/67; PULSE 99; RESP 20; TEMP 36.1; O2SAT 97
[2025-04-08 16:00] VITALS: BP 111/56; PULSE 99; RESP 20; TEMP 36.3; O2SAT 99
[2025-04-08 20:00] VITALS: BP 105/59; PULSE 89; RESP 18; TEMP 36.4; O2SAT 100
[2025-04-09] VITALS: BP 104/59; PULSE 105; RESP 18; TEMP 36.1; O2SAT 100
[2025-04-09 08:00] VITALS: BP 107/59; PULSE 84; RESP 20; TEMP 35.3; O2SAT 100
[2025-04-09 12:00] VITALS: BP 110/52; PULSE 91; RESP 20; TEMP 36.1; O2SAT 99
[2025-04-09 16:00] VITALS: BP 113/33; PULSE 88; RESP 20; TEMP 36.3; O2SAT 98
[2025-04-09 20:00] VITALS: BP 111/59; PULSE 94; RESP 18; TEMP 36.1; O2SAT 99
[2025-04-09] MEDS: GUAIFENESIN-DM 200MG-20MG/10ML UDC PO PRN (21:14)
[2025-04-10] VITALS: BP 100/53; PULSE 88; RESP 18; TEMP 36.1; O2SAT 97
[2025-04-10 04:00] VITALS: BP 104/47; PULSE 82; RESP 18; TEMP 36.1; O2SAT 96
[2025-04-10 08:00] VITALS: BP 100/60; PULSE 84; RESP 16; TEMP 37.1; O2SAT 99
[2025-04-10 12:00] VITALS: BP 97/64; PULSE 91; RESP 17; TEMP 36.6; O2SAT 99
[2025-04-10 16:00] VITALS: BP 113/62; PULSE 82; RESP 18; TEMP 36.4; O2SAT 98
[2025-04-10 20:00] VITALS: BP 114/63; PULSE 87; RESP 20; TEMP 35.8; O2SAT 100
[2025-04-11] VITALS: BP 110/60; PULSE 86; RESP 20; TEMP 35.9; O2SAT 95
[2025-04-11 04:00] VITALS: BP 110/60; PULSE 84; RESP 20; TEMP 35.9; O2SAT 95
[2025-04-11 08:00] VITALS: BP 109/61; PULSE 89; RESP 20; TEMP 35.7; O2SAT 98
[2025-04-11] MEDS: INSULIN GLARGINE 100 UNITS/ML SUBCUT SCH (08:18)
[2025-04-11 12:00] VITALS: BP 109/67; PULSE 95; RESP 19; TEMP 35.7; O2SAT 98
[2025-04-11 16:00] VITALS: BP 130/78; PULSE 90; RESP 19; TEMP 36.1; O2SAT 100
[2025-04-11 20:00] VITALS: BP 104/58; PULSE 90; RESP 16; TEMP 36.2; O2SAT 99
[2025-04-11] MEDS ORDERED: DEXTROSE 50% WATER 50ML SYRINGE IV PRN (20:15)
[2025-04-11] MEDS: BLOOD SUGAR DIAGNOSTIC STRIP TEST SCH (21:29)
[2025-04-11] MEDS: INSULIN LISPRO 100 UNITS/ML SUBCUT SCH (21:39)
[2025-04-12] VITALS: BP 104/56; PULSE 87; RESP 19; TEMP 36.8; O2SAT 99
[2025-04-12 04:00] VITALS: BP 109/57; PULSE 91; RESP 16; TEMP 36.6; O2SAT 98
[2025-04-12 08:00] VITALS: BP 92/56; PULSE 87; RESP 18; TEMP 36.9; O2SAT 100
[2025-04-12 12:00] VITALS: BP 112/59; PULSE 84; RESP 18; TEMP 36.8; O2SAT 98
[2025-04-12 16:00] VITALS: BP 100/63; PULSE 98; RESP 18; TEMP 37.3; O2SAT 100
[2025-04-12] MEDS: PYRIDOXINE 100 MG/ML 1ML IM NR (18:47)
[2025-04-12 20:00] VITALS: BP 95/61; PULSE 88; RESP 17; TEMP 36.4; O2SAT 97
[2025-04-13] VITALS: BP 126/63; PULSE 106; RESP 20; TEMP 36.1; O2SAT 98
[2025-04-13 04:00] VITALS: BP 104/58; PULSE 95; RESP 16; TEMP 36.4; O2SAT 97
[2025-04-13 08:00] VITALS: BP 109/60; RESP 19; TEMP 36.1; O2SAT 98
[2025-04-13] MEDS: RIFAMPIN 300MG CAPSULE PO SCH (08:55)
[2025-04-13] MEDS: PYRAZINAMIDE 500MG TABLET PO SCH (08:56)
[2025-04-13] MEDS: ISONIAZID 300MG TABLET PO SCH (08:56)
[2025-04-13] MEDS: PYRIDOXINE HCL 50MG TABLET PO SCH (08:56)
[2025-04-13] MEDS: ETHAMBUTOL HCL 400MG TABLET PO SCH (08:56)
[2025-04-13 12:00] VITALS: BP 106/61; PULSE 97; RESP 18; TEMP 35.9; O2SAT 100
[2025-04-13 16:00] VITALS: BP 97/52; PULSE 89; RESP 18; TEMP 36.5; O2SAT 100
[2025-04-13 20:00] VITALS: BP 99/57; PULSE 86; RESP 16; TEMP 36.4; O2SAT 100
[2025-04-14] VITALS: BP 97/64; PULSE 89; RESP 18; TEMP 36.9; O2SAT 99
[2025-04-14 04:00] VITALS: BP 106/65; PULSE 88; RESP 18; TEMP 36.3; O2SAT 100
[2025-04-14 08:00] VITALS: PULSE 89; RESP 18; TEMP 36.7; O2SAT 100
[2025-04-14 12:00] VITALS: BP_SYST 100; BP_SYST 93; BP_DIAS 54; BP_DIAS 58; PULSE 75; PULSE 88; RESP 18; TEMP 36.3; TEMP 36.7; O2SAT 100; O2SAT 97
[2025-04-14 16:00] VITALS: BP 110/66; PULSE 95; RESP 18; TEMP 37.1; O2SAT 98
[2025-04-14 20:00] VITALS: BP 103/71; PULSE 97; RESP 19; TEMP 36.7; O2SAT 100
[2025-04-14] MEDS: INSULIN GLARGINE 100 UNITS/ML SUBCUT SCH (22:21)
[2025-04-15] VITALS: BP 102/63; PULSE 84; RESP 18; TEMP 36.6; O2SAT 98
[2025-04-15 04:00] VITALS: BP 110/72; PULSE 80; RESP 19; TEMP 36.6; O2SAT 98
[2025-04-15 08:00] VITALS: BP 102/60; PULSE 99; RESP 18; TEMP 36.2; O2SAT 99
[2025-04-15] MEDS: PYRAZINAMIDE 500MG TABLET PO SCH (09:58)
[2025-04-15 12:00] VITALS: BP 93/51; PULSE 91; RESP 18; TEMP 36.3; O2SAT 98
[2025-04-15 16:00] VITALS: BP 101/63; PULSE 83; RESP 18; TEMP 36.4; O2SAT 100
[2025-04-15 20:00] VITALS: BP 101/60; PULSE 91; RESP 16; TEMP 36.2; O2SAT 100
[2025-04-16] VITALS: BP 98/58; PULSE 70; RESP 17; TEMP 36.2; O2SAT 99
[2025-04-16 04:00] VITALS: BP 120/67; PULSE 91; RESP 17; TEMP 36.9; O2SAT 100
[2025-04-16 08:00] VITALS: BP 102/48; PULSE 91; RESP 18; TEMP 35.9; O2SAT 95
[2025-04-16 12:00] VITALS: BP 100/58; PULSE 85; RESP 18; TEMP 35.9; O2SAT 97
[2025-04-16 16:00] VITALS: BP 99/58; PULSE 88; RESP 19; TEMP 35.7; O2SAT 98
[2025-04-16 20:00] VITALS: BP 106/64; PULSE 82; RESP 19; TEMP 36.8; O2SAT 99
[2025-04-17] VITALS (7 sets, daily range): BP systolic 90–135; BP diastolic 57–64; PULSE 64–95; RESP 16–20; TEMP 36.4–37.3; O2SAT 97–100
[2025-04-18] VITALS: BP 97/55; PULSE 97; RESP 18; TEMP 36.5; O2SAT 99
[2025-04-18 04:00] VITALS: BP 90/45; PULSE 80; RESP 16; TEMP 36.4; O2SAT 99
[2025-04-18 08:00] VITALS: BP 92/58; PULSE 72; RESP 18; TEMP 36.3
[2025-04-18 12:00] VITALS: BP 94/47; PULSE 92; RESP 19; TEMP 36.7
[2025-04-18 16:00] VITALS: BP 95/52; PULSE 93; RESP 19; TEMP 36.6
[2025-04-18 20:00] VITALS: BP 95/56; PULSE 93; RESP 16; TEMP 37.3; O2SAT 99
[2025-04-19] VITALS: BP 98/63; PULSE 61; RESP 19; TEMP 36.5; O2SAT 99
[2025-04-19 04:00] VITALS: BP 99/55; PULSE 78; RESP 18; TEMP 36.7; O2SAT 98
[2025-04-19 08:00] VITALS: BP 97/60; PULSE 87; RESP 18; TEMP 36.1; O2SAT 99
[2025-04-19] MEDS ORDERED: LANTUSUD SUBCUT (10:30)
[2025-04-19] MEDS ORDERED: ABIL5 PO (10:30)
[2025-04-19] MEDS ORDERED: [UNRECOGNIZED DRUG - CODE] PO (10:30)
[2025-04-19] MEDS ORDERED: PYRI-8 PO (10:30)
[2025-04-19] MEDS ORDERED: [UNRECOGNIZED DRUG - CODE] PO (10:30)
[2025-04-19] MEDS ORDERED: RIFA300C66 PO (10:30)
[2025-04-19 12:00] VITALS: BP 108/59; PULSE 89; RESP 18; TEMP 36.2; O2SAT 100
[2025-04-19 16:00] VITALS: BP 94/56; PULSE 85; RESP 18; TEMP 36.4; O2SAT 100
[2025-04-19 18:24] LABS: PLATELET 216 x1000/uL (130-400); RED BLOOD CELL COUNT 5.42 mill/uL (4.7-6.1); RED CELL DISTRIBUTION WIDTH 12.9 % (11.6-14.6)
[2025-04-19 18:40] LABS: CREATININE 0.8 mg/dL (0.6-1.3); UREA NITROGEN BLOOD 9 mg/dL (9-23)
[2025-04-19 18:42] LABS: ASPARTATE AMINOTRANSFERASE 24 IU/L (<34); BILIRUBIN TOTAL 0.5 mg/dL (0.1-1.0); PROTEIN TOTAL 7.0 g/dL (6.0-8.3)
[2025-04-19 20:00] VITALS: BP 94/58; PULSE 74; RESP 18; TEMP 36.7; O2SAT 100
[2025-04-20] VITALS: BP 92/48; PULSE 70; RESP 16; TEMP 36.2; O2SAT 99
[2025-04-20 04:00] VITALS: BP 96/57; PULSE 78; RESP 18; TEMP 36.3; O2SAT 99
[2025-04-20 08:00] VITALS: BP 91/58; PULSE 86; RESP 16; TEMP 36.3; O2SAT 98
[2025-04-20 12:00] VITALS: BP 110/66; PULSE 82; RESP 17; TEMP 36.4; O2SAT 100
[2025-04-20 16:00] VITALS: BP 107/62; PULSE 78; RESP 17; TEMP 36.4; O2SAT 100
[2025-04-20 20:00] VITALS: BP 107/66; PULSE 89; RESP 18; TEMP 36.5; O2SAT 99
[2025-04-21] VITALS (7 sets, daily range): BP systolic 100–104; BP diastolic 61–69; PULSE 81–94; RESP 18–19; TEMP 36.6–37.2; O2SAT 95–100
[2025-04-22] VITALS: BP 108/74; PULSE 98; RESP 18; TEMP 36.5; O2SAT 72
[2025-04-22 04:00] VITALS: BP 100/60; PULSE 85; RESP 18; TEMP 36.5; O2SAT 95
[2025-04-22 08:00] VITALS: BP 106/68; PULSE 73; RESP 18; TEMP 36.8; O2SAT 99
[2025-04-22 12:00] VITALS: BP 102/64; PULSE 81; RESP 19; TEMP 36.6; O2SAT 100
[2025-04-22 16:00] VITALS: BP 101/62; PULSE 85; RESP 18; TEMP 36.4; O2SAT 97
[2025-04-22 20:00] VITALS: BP 97/61; PULSE 83; RESP 18; TEMP 36.7; O2SAT 97
[2025-04-23] VITALS: BP 101/62; PULSE 77; RESP 18; TEMP 36.3; O2SAT 95
[2025-04-23 08:00] VITALS: BP 100/61; PULSE 70; RESP 19; TEMP 36.8; O2SAT 100
[2025-04-23 12:00] VITALS: BP 97/63; PULSE 74; RESP 18; TEMP 36.7; O2SAT 99
[2025-04-23 16:00] VITALS: BP 96/55; PULSE 85; RESP 19; TEMP 36.6; O2SAT 100
[2025-04-23 20:00] VITALS: BP_SYST 105; BP_SYST 107; BP_DIAS 59; BP_DIAS 62; PULSE 91; PULSE 98; RESP 18; RESP 19; TEMP 36.2; TEMP 36.3; O2SAT 98; O2SAT 99
[2025-04-24 08:00] VITALS: BP 102/63; PULSE 81; RESP 18; TEMP 36.3; O2SAT 100
== END 2025-04-24 16:05 | disposition home or self-care (01) | DRG 720 ==
LOC: ER 12:19 → EDBEDREQTM 16:10 → EDBEDREQ 16:10 → ENRESERV 21:42 → 7WST 22:50 → 6EST 03-25 13:11
PROVIDERS: ADMIT Internal Medicine; ATTEND Internal Medicine
PROC: GZ56ZZZ Individual Psychotherapy, Supportive (ICD-10-PCS; principal; 2025-03-19)
DX: A41.9 Sepsis, unspecified organism (principal); K92.2 Gastrointestinal hemorrhage, unspecified; F29 Unspecified psychosis not due to a substance or known physiological condition; R04.2 Hemoptysis; Z59.01 Sheltered homelessness; E11.65 Type 2 diabetes mellitus with hyperglycemia; J18.9 Pneumonia, unspecified organism; D64.9 Anemia, unspecified; R45.851 Suicidal ideations; I10 Essential (primary) hypertension; F32.9 Major depressive disorder, single episode, unspecified; F12.90 Cannabis use, unspecified, uncomplicated; F17.210 Nicotine dependence, cigarettes, uncomplicated; Z78.9 Other specified health status; Z91.51 Personal history of suicidal behavior; Z79.4 Long term (current) use of insulin
CPT/HCPCS: 36415; 36600; 71045; 71046; 71250; 74176; 80048; 80053; 80076; 80305; 80307; 80320; 80329; 81003; 82010; 82375; 82805; 82962; 83036; 83605; 83930; 84145; 84443; 84484; 85025; 85027; 86480; 86606; 86705; 86709; 86713; 87070; 87116; 87149; 87153; 87278; 87340; 87556; 93005; 93970; 96365; 96367; 96372; 97161; 99291; A4606; A6449; J0456; J0696; J1308; J1650; J1815; J2250; J2470; J3415; J7030; J7131; G0480